=== PATIENT | female | born 1965 | race Caucasian/White ===

== ENCOUNTER 2018-08-25 20:09 | Emergency (ER) | payer OTHER ==
[~2018-08-25] VITALS: Ht 170.2 cm; Wt 104.5 kg
[2018-08-25 20:12] VITALS: BP 181/81; TEMP 98.2
[2018-08-25 21:23] VITALS: PULSE 73
== END 2018-08-25 21:23 | disposition home or self-care (01) ==
LOC: COL.ER 20:09
DX: M25.511 Pain in right shoulder (principal); Z88.0 Allergy status to penicillin; W01.0XXA Fall on same level from slipping, tripping and stumbling without subsequent striking against object, initial encounter; Y92.009 Unspecified place in unspecified non-institutional (private) residence as the place of occurrence of the external cause